=== PATIENT | female | born 2000 | race Two or more races ===

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

== ENCOUNTER → 2019-01-31 | Outpatient (REF) | payer OTHER, MEDICAID ==
[~2019-01-31] MED LIST: FLAG500T PO; IRON27TA2 PO; PREN27TA3 PO; VENTAER INH; ZOFR4TAB16 PO
== END ==
LOC: M SFHCLERA 10:17 → MERGE 10:17
PROVIDERS: ATTEND Nurse Practitioner Family
DX: J02.9 Acute pharyngitis, unspecified (principal)

== ENCOUNTER → 2019-05-04 | Outpatient (CLI) | payer OTHER ==
--- NOTE | 2019-05-04 19:26 | REP ---
HISTORY: anatomy. Multiple ultrasonographic images of the gravid uterus show a single living intrauterine gestation in the fareed breech presentation. Doppler interrogation of the heart shows a heart rate of 155 beats per minute. The placenta is anterior and not low lying. The subjective amniotic fluid volume is within normal limits. The cervix measures 3.6 cm in length and is closed. Evaluation of the maternal adnexal spaces showed no abnormalities. BPD 5.9 cm = 24 weeks 0 days HC 21.7 cm = 23 weeks 5 days AC 19.2 cm = 24 weeks 1 day FL 4.2 cm = 23 weeks 4 days The estimated weight is 637 grams, which is at the 76th percentile for a 22 week 6 day gestational age. The anatomical structures visualized as unremarkable are as follows: Thalami, cavum septum pellucidum, cerebellum, cisterna magna, cerebral ventricles, spine, cord insertion, three vessel umbilical cord, stomach, upper lip, four chamber heart, right and left ventricular outflow tracts, and upper and lower extremities. The kidneys and urinary bladder were suboptimally visualized. IMPRESSION: Single living intrauterine gestation as described above with an estimated gestational age of 24 weeks 1 day via composite criteria and an estimated date of delivery of 08/23/2019 by today's exam. No anomalies were detected, however, I recommend a followup examination to better visualize the kidneys and the urinary bladder. Electronically Signed by Lisandro López DO 05/05/2019 04:15 P
== END ==
LOC: M RAD 15:08
PROVIDERS: ATTEND Obstetrics & Gynecology
DX: Z34.90 Encounter for supervision of normal pregnancy, unspecified, unspecified trimester (principal); Z36.89 Encounter for other specified antenatal screening; Z3A.24 24 weeks gestation of pregnancy

== ENCOUNTER → 2019-05-31 | Outpatient (CLI) | payer OTHER ==
[2019-05-31 19:54] LABS: HEMATOCRIT 32.7 % (36.0-47.0); HEMOGLOBIN 10.5 g/dl (12.0-15.5); MEAN CORPUSCULAR HEMOGLOBIN 30.9 pg (27.0-33.0); MEAN CORPUSCULAR HGB CONC 32.1 g/dl (32.0-36.5); MEAN CORPUSCULAR VOLUME 96.2 fl (80.0-96.0); PLATELET COUNT, AUTOMATED 236 10^3/uL (150-450); WHITE BLOOD COUNT 8.7 10^3/uL (4.0-10.0)
== END ==
LOC: M PLALAB 12:55
PROVIDERS: ATTEND Obstetrics & Gynecology
DX: Z34.90 Encounter for supervision of normal pregnancy, unspecified, unspecified trimester (principal); Z36.89 Encounter for other specified antenatal screening

== ENCOUNTER → 2019-06-08 | Outpatient (REF) | payer OTHER, MEDICAID ==
[2019-06-09 10:17] LABS: APPEARANCE, URINE HAZY (CLEAR); BACTERIA, URINE AUTO NEGATIVE (NEGATIVE); BILIRUBIN, URINE AUTO NEGATIVE (NEGATIVE); BLOOD, URINE BLOOD NEGATIVE (NEGATIVE); COLOR, URINE YELLOW (YELLOW); GLUCOSE, URINE (UA) AUTO NEGATIVE (NEGATIVE); KETONE, URINE AUTO NEGATIVE (NEGATIVE); LEUKOCYTE ESTERASE, URINE AUTO NEGATIVE (NEGATIVE); MUCUS, URINE SMALL (NEGATIVE); NITRITE, URINE AUTO NEGATIVE (NEGATIVE); PROTEIN, URINE AUTO NEGATIVE (NEGATIVE); RBC, URINE AUTO 1 /HPF (0-3); SPECIFIC GRAVITY URINE AUTO 1.027 (1.002-1.035); SQUAMOUS EPITHELIAL CELL UR AU 1 /HPF (0-6); UROBILINOGEN, URINE AUTO 0.2 mg/dL (0.0-2.0); WBC, URINE AUTO 1 /HPF (0-3)
== END ==
LOC: M SFHCWAGY 09:49
PROVIDERS: ATTEND Obstetrics & Gynecology
DX: R39.89 Other symptoms and signs involving the genitourinary system (principal)

== ENCOUNTER 2019-07-18 21:26 | Outpatient (CLI) | payer MEDICAID, OTHER ==
[~2019-07-18] VITALS: Ht 157.5 cm; Wt 62.0 kg
[2019-07-18 21:37] VITALS: BP 113/64
--- NOTE | 2019-07-18 21:58 | IPNPDOC ---
Text Note Date of Service The patient was seen on 07/18/19. NOTE Subjective: Patient is a 19-year-old female who is a at 33.4 weeks gestation with an EDWIGE of 09/01/2019. Her has been complicated by a history of asthma, depression and anxiety. She is taking fluoxitine daily for depression and anxiety. She presents to L&D with complaints of decreased movement. She reports she hasn't felt her baby move from noon until 6 and after she ate and counted she only got 5 movements in 1.5 hours and fell asleep over the next half hour. She reports occasional cramping. She denies any leaking of fluid or vaginal bleeding. She states she has a history of migraines and has been dealing with a migraine/headache that hasnt improved with Tylenol. She reports Tylenol usually helps take care of her migraines. She was sent a script for Esgic to the pharmacy today prior to arrival to L&D. Since being in the department patient reports she has felt multiple movements. She counted at least 5 prior to ultrasound and 3 while doing ultrasound. Objective: VS: see below. FHR: 140, moderate variability, positive accelerations, no decelerations. Contractions: occasional. Patient denies feeling pain or tightening while arun. A+O x3. Respiratory: regular rate and rhythm. Abdomen: gravid, non tender to palpation and soft to touch. Bedside ultrasound done showing +FM, + breathing, and LINDA of 10.6 cm. Modified BPP is 10/10. Assessment: IUP at 33 weeks gestation, migraine, decreased movement, Category I FHR tracing, Plan: Patient to be discharged to home. Extensive education done on kick count, labor signs, and danger signs to report. She is to follow-up with her routine care, which is scheduled for 07/25/19. She is to call the office with any changes. VS,Cecilio, I+O VS, Cecilio, I+O Vital Signs Date Time Temp Pulse Resp B/P (MAP) Pulse Ox O2 Delivery O2 Flow Rate FiO2 07/18/19 21:37 98.1 86 18 113/64 (80) NADIA LUZ CNM Jul 18, 2019 21:58
[2019-07-18] MEDS ORDERED: FIORICET TAB PO ONE (22:00)
== END 2019-07-18 22:30 | disposition home or self-care (01) ==
LOC: M LDO 21:26
PROVIDERS: ATTEND Advanced Practice Midwife
DX: O36.8130 Decreased fetal movements, third trimester, not applicable or unspecified (principal); Z3A.33 33 weeks gestation of pregnancy; O99.513 Diseases of the respiratory system complicating pregnancy, third trimester; O99.343 Other mental disorders complicating pregnancy, third trimester

== ENCOUNTER 2019-08-01 00:10 | Outpatient (CLI) | payer MEDICAID, OTHER ==
[~2019-08-01] VITALS: Ht 157.5 cm; Wt 62.2 kg
[2019-08-01 00:29] VITALS: BP 128/78
[2019-08-01] MEDS ORDERED: ACETAMINOPHEN 500 MG TAB PO ONE (04:15)
[2019-08-01] MEDS ORDERED: MOM 30ML SUSPENSION UDC PO ONE (04:15)
[2019-08-01 04:31] VITALS: BP 119/76
--- NOTE | 2019-08-01 08:50 | IPNPDOC ---
Obstetrical Progress Note Date of Service Aug 01, 2019 Objective Vital Signs Date Time Temp Pulse Resp B/P (MAP) Pulse Ox O2 Delivery O2 Flow Rate FiO2 08/01/19 04:31 98.1 96 119/76 (90) Sterile Vaginal Examination Dilation: 2cm Effacement (%): 70% Station: -2 Cervical Consistency: Soft Cervical Position: Posterior Postion/Presentation: Cephalic presentation SARI CLIFTON MD. Aug 01, 2019 08:50
== END 2019-08-01 06:35 | disposition home or self-care (01) ==
LOC: M LDO 00:10
PROVIDERS: ATTEND Obstetrics & Gynecology
DX: O26.893 Other specified pregnancy related conditions, third trimester (principal); K59.00 Constipation, unspecified; Z3A.36 36 weeks gestation of pregnancy

== ENCOUNTER → 2019-08-05 | Outpatient (REF) | payer MEDICAID, OTHER ==
[~2019-08-05] MED LIST changes: +TUMS500C PO
== END ==
LOC: M SFHCWAGY 17:02
PROVIDERS: ATTEND Obstetrics & Gynecology
DX: Z3A.36 36 weeks gestation of pregnancy (principal)

== ENCOUNTER 2019-08-08 13:36 | Outpatient (CLI) | payer MEDICAID ==
[~2019-08-08] VITALS: Ht 157.5 cm; Wt 65.5 kg
[~2019-08-08 13:36] MED LIST changes: -TUMS500C PO
[2019-08-08 13:53] VITALS: BP 117/72
[2019-08-08] MEDS ORDERED: TUMS500C PO (13:59)
--- NOTE | 2019-08-08 14:43 | IPNPDOC ---
Text Note Date of Service The patient was seen on 08/08/19. NOTE Subjective: Patient is a 19-year-old female who is a at 36.4 weeks gestation with an EDWIGE of 09/01/19 based on her LMP and consistent with her first trimester ultrasound. She initiated care in her first trimester with [facility]. Her has been uncomplicated. She presented to L&D with complaints of being woke up with contractions this morning. She reports contractions that were regular every 6-10 minutes and painful for 2 hours and then reports they decreased in intensity but she was concerned that she wouldn't make it in time if she was in labor to get an epidural. She reports cramping and contractions now that aren't as painful as they were this morning. She denies vaginal bleeding or leaking of fluid. She reports active movement. Past pregnancies: 11/2015: 12 week SAB; 07/2017: 8 week SAB Medical history: asthma, anxiety and depression Surgical history: D&C Family history: HTN Social history: . Nonsmoker. Denies drug or alcohol use. Objective: VS: See below. FHR 130, moderate variability, positive accelerations, no decelerations. Contractions: every 2-6 minutes. SVE: 3-4/90/-1, anterior, soft, no show. No change from exam done in the office on 08/05/19. No change after 4-5 hours of being monitored. Assessment: IUP at 36.4 weeks gestation, labor check, Category I FHR tracing. Plan: Betamethasone given in L&D given advanced cervical dilation and contraction pattern. She was instructed to return tomorrow at the same time for her second dose. Education done on reasoning behind injection. Patient verbalized understanding. Extensive education done on labor signs and term labor signs. Reviewed access to care, kick count, labor signs and danger signs to report. VS,Fishbone, I+O VS, Fishbone, I+O Vital Signs Date Time Temp Pulse Resp B/P (MAP) Pulse Ox O2 Delivery O2 Flow Rate FiO2 08/08/19 13:53 98.3 80 18 117/72 (87) 98 Room Air NADIA LUZ CNM Aug 08, 2019 14:43
[2019-08-08] MEDS ORDERED: BETAMETHASONE SOLUSPAN 6MG/ML INJ 5ML (J0702) As Ordered ONE (18:23)
[2019-08-08] MEDS ORDERED: BETAMETHASONE SOLUSPAN 6MG/ML INJ 5ML (J0702) IM SCH (19:00)
== END 2019-08-08 18:32 | disposition home or self-care (01) ==
LOC: M LDO 13:36
PROVIDERS: ATTEND Advanced Practice Midwife
DX: O47.1 False labor at or after 37 completed weeks of gestation (principal); Z3A.36 36 weeks gestation of pregnancy; O99.343 Other mental disorders complicating pregnancy, third trimester; F32.9 Major depressive disorder, single episode, unspecified; F41.9 Anxiety disorder, unspecified; O99.513 Diseases of the respiratory system complicating pregnancy, third trimester; J45.909 Unspecified asthma, uncomplicated; Z79.899 Other long term (current) drug therapy
CPT/HCPCS: 59025; 96372; J0702

== ENCOUNTER 2019-08-09 17:52 | Outpatient (CLI) | payer MEDICAID ==
[~2019-08-09] VITALS: Ht 157.5 cm; Wt 64.4 kg
[~2019-08-09 17:52] MED LIST changes: +TUMS500C PO
[2019-08-09 18:11] VITALS: BP 117/70
[2019-08-09] MEDS ORDERED: BETAMETHASONE SOLUSPAN 6MG/ML INJ 5ML (J0702) IM ONE (19:00)
== END 2019-08-09 19:05 | disposition home or self-care (01) ==
LOC: M LDO 17:52
PROVIDERS: ATTEND Obstetrics & Gynecology
DX: O47.1 False labor at or after 37 completed weeks of gestation (principal); Z3A.36 36 weeks gestation of pregnancy; O99.343 Other mental disorders complicating pregnancy, third trimester; F32.9 Major depressive disorder, single episode, unspecified; O99.513 Diseases of the respiratory system complicating pregnancy, third trimester; J45.909 Unspecified asthma, uncomplicated; Z79.899 Other long term (current) drug therapy
CPT/HCPCS: 59025; 96372; J0702

== ENCOUNTER 2019-08-23 00:48 | Outpatient (CLI) | payer MEDICAID, OTHER ==
[~2019-08-23] VITALS: Ht 157.5 cm; Wt 66.8 kg
[2019-08-23 01:11] VITALS: BP 125/80
[2019-08-23] MEDS ORDERED: PROMETHAZINE INJ 25 MG/ML VIAL (J2550) IV ONE (03:45)
[2019-08-23] MEDS ORDERED: MORPHINE 10 MG/ML 1ML VIAL (J2270) IV ONE (03:45)
[2019-08-23] MEDS ORDERED: MORPHINE 10 MG/ML 1ML VIAL (J2270) SC ONE (03:45)
[2019-08-23 04:20] VITALS: BP 121/75
== END 2019-08-23 08:30 | disposition home or self-care (01) ==
LOC: M LDO 00:48
PROVIDERS: ATTEND Obstetrics & Gynecology
DX: O47.1 False labor at or after 37 completed weeks of gestation (principal); Z3A.38 38 weeks gestation of pregnancy
CPT/HCPCS: 59025; 96372; 96374; 96375; G0378; G0463; J2270

== ENCOUNTER 2019-08-28 12:00 | Inpatient (IN) | payer OTHER ==
[2019-08-28] VITALS (35 sets, daily range): BP systolic 98–166; BP diastolic 49–102
[~2019-08-28] VITALS: Ht 157.5 cm; Wt 68.0 kg
[2019-08-28] MEDS ORDERED: OXYTOCIN DRIP 30 UNITS in IV 1 EA IV SCH (13:15)
[2019-08-28] MEDS ORDERED: ALBUTEROL 90 MCG/ACT 8GM HFA INHALER INH PRN (13:30)
[2019-08-28 13:35] LABS: HEMATOCRIT 33.3 % (36.0-47.0); HEMOGLOBIN 10.7 g/dl (12.0-15.5); MEAN CORPUSCULAR HEMOGLOBIN 29.7 pg (27.0-33.0); MEAN CORPUSCULAR HGB CONC 32.1 g/dl (32.0-36.5); MEAN CORPUSCULAR VOLUME 92.5 fl (80.0-96.0); PLATELET COUNT, AUTOMATED 219 10^3/uL (150-450); WHITE BLOOD COUNT 8.1 10^3/uL (4.0-10.0)
[2019-08-28] MEDS: LR 1,000 ML IV SCH (14:43)
--- NOTE | 2019-08-28 14:48 | HPE ---
DATE OF ADMISSION: 08/28/2019 19-year-old 3, para 0-0-2-0 female at 39-3/7 weeks gestation by last menstrual period (LMP) consistent with 10 week ultrasound, estimated date of confinement (EDC) 09/01/2019 presents for labor induction. The has occasional contractions. She denies vaginal bleeding. There is good movement. MEDICAL HISTORY: 1. Asthma. 2. Depression. 3. Anxiety. SURGICAL HISTORY: 1. Dilatation and curettage. ALLERGIES: No known drug allergies. SOCIAL HISTORY: The patient is . She lives at [place]. Her is involved. She denies cigarettes, alcohol or drug use. FAMILY HISTORY: Noncontributory. PHYSICAL EXAMINATION: Blood pressure 124/74, pulse 84. In no apparent distress. Head and neck exam normal. Lungs clear. Heart regular rate and rhythm. Abdomen nontender, gravid. heart tones category 1. Contractions irregular. Sterile vaginal exam 3-4 cm, 100%, -2. Extremities nontender. LABS: Group B Streptococcus (GBS) negative. Normal glucose challenge test. Blood type O positive. ASSESSMENT: 19-year-old 3, para 0-0-2-0 female at 39-3/7 weeks gestation who presents for labor induction. PLAN: The patient was admitted on 08/28/2019. Plan induction via Pitocin. The risks of induction were discussed.
[2019-08-28] MEDS ORDERED: CALCIUM CARBONATE 500 MG CHEW U/D PO PRN (18:00)
[2019-08-28] MEDS ORDERED: FENTANYL 2MCG/ML ROPIVACAINE 0.2% IN 0.9% NACL 100ML IVBAG As Ordered ONE (20:06)
[2019-08-28] MEDS ORDERED: ONDANSETRON 4MG/2ML VIAL (J2405) IV PRN (22:15)
[2019-08-28] MEDS ORDERED: ePHEDrine SULFATE 25 MG/5 ML(5MG/ML) SYRINGE IV PRN (22:15)
[2019-08-28] MEDS ORDERED: diphenhydrAMINE 50MG/ML VIAL (J1200) IV PRN (22:15)
[2019-08-28] MEDS ORDERED: NALOXONE INJ 0.4 MG/1 ML VIAL (J2310) IV PRN (22:15)
[2019-08-28] MEDS ORDERED: REFRIGERATOR IV KEYS XX PRN (22:15)
[2019-08-28] MEDS ORDERED: LACTATED RINGER'S 1000 ML IV PRN (22:15)
[2019-08-28] MEDS ORDERED: EPIDURAL COMMENT XX SCH (22:15)
[2019-08-28] MEDS ORDERED: EPIDURAL/PCA KEYS XX PRN (22:15)
[2019-08-28] MEDS ORDERED: FENTANYL/ROPIVACAINE/NACL BAG 100 ML EPIDURAL SCH (22:15)
[2019-08-29] VITALS (10 sets, daily range): BP systolic 112–157; BP diastolic 66–108
[2019-08-29] MEDS: LR 1,000 ML IV SCH (00:08)
[2019-08-29] MEDS ORDERED: DIBUCAINE 1% OINTMENT 30GM TOP PRN (00:30)
[2019-08-29] MEDS ORDERED: ONDANSETRON 4MG/2ML VIAL (J2405) IV PRN (00:30)
[2019-08-29] MEDS ORDERED: RHOGAM 300 MCG (1500 IU) INJ (J2790) IM SCH (00:30)
[2019-08-29] MEDS ORDERED: IBUPROFEN 600 MG TAB PO PRN (00:30)
[2019-08-29] MEDS ORDERED: OXYTOCIN DRIP 30 UNITS in IV 1 EA IV ONE (00:30)
[2019-08-29] MEDS ORDERED: METHYLERGONOVINE MALEATE 0.2 MG TAB PO PRN (00:30)
[2019-08-29] MEDS ORDERED: DOCUSATE SODIUM 100 MG CAP PO PRN (00:30)
[2019-08-29] MEDS ORDERED: ACETAMINOPHEN 500 MG TAB PO PRN (00:30)
[2019-08-29] MEDS ORDERED: MEASLES,MUMPS,RUBELLA VACCINE INJ (MMR-II) (90707) SC SCH (00:30)
[2019-08-29] MEDS: IBUPROFEN 800 MG TAB PO PRN (00:36)
--- NOTE | 2019-08-29 07:34 | DN ---
DATE OF DELIVERY: 08/28/2019 PREDELIVERY DIAGNOSIS: 39 plus weeks, labor induction. POSTDELIVERY DIAGNOSIS: Delivered. PROCEDURE: Spontaneous vaginal delivery. SURGEON: Dr. Cordell Bee ANESTHESIA: Epidural. ESTIMATED BLOOD LOSS: 300 mL. FINDINGS: 7 pound 10 ounce female . Apgars 8 and 9. DELIVERY SUMMARY: After a 30 minute second stage of labor, the patient spontaneously delivered a 7 pound 10 ounce female with Apgars of 8 and 9 under epidural anesthesia. There was no nuchal cord. The shoulders delivered with ease. The infant was handed to the mother. The cord was doubly clamped and cut. The placenta delivered spontaneously and appeared to be intact. The patient received IV Pitocin immediately after delivery of the placenta. There were no vaginal lacerations present. Sponge counts were correct.
[2019-08-29] MEDS: ACETAMINOPHEN TAB 650MG DOSE (2X325MG) PO PRN ×2 (08:57→19:40)
[2019-08-29] MEDS: PRENATAL VITAMINS CHEWABLE TABLET PO SCH (08:57)
[2019-08-30] MEDS: IBUPROFEN 800 MG TAB PO PRN (05:03)
[2019-08-30 06:34] VITALS: BP 136/81
[2019-08-30] MEDS ORDERED: IBUP80TA PO (07:29)
[2019-08-30] MEDS ORDERED: ACET-683 PO (07:29)
[2019-08-30] MEDS: PRENATAL VITAMINS CHEWABLE TABLET PO SCH (10:57)
== END 2019-08-30 13:40 | disposition home or self-care (01) | DRG 807 ==
LOC: M LDI 12:00 → M OBS 08-29 02:40
PROVIDERS: ADMIT Specialist; ATTEND Specialist
PROC: 10E0XZZ Delivery of Products of Conception, External Approach (ICD-10-PCS; principal; 2019-08-28)
PROC: 3E033VJ Introduction of Other Hormone into Peripheral Vein, Percutaneous Approach (ICD-10-PCS; 2019-08-28)
DX: O80 Encounter for full-term uncomplicated delivery (principal); Z37.0 Single live birth; Z3A.39 39 weeks gestation of pregnancy

== ENCOUNTER → 2019-11-18 | Outpatient (REF) | payer OTHER ==
[~2019-11-18] MED LIST changes: +ACET-683 PO; +IBUP80TA PO
[2019-11-18 19:44] LABS: CHLAMYDIA DNA AMPLIFICATION NEGATIVE (NEGATIVE); GC DNA AMPLIFICATION NEGATIVE (NEGATIVE)
== END ==
LOC: M SFHCLERA 15:55
PROVIDERS: ATTEND Physician Assistant
DX: R10.9 Unspecified abdominal pain (principal); G43.909 Migraine, unspecified, not intractable, without status migrainosus

== ENCOUNTER 2019-11-25 01:34 | Emergency (ER) | payer OTHER ==
[~2019-11-25] VITALS: Ht 157.5 cm; Wt 62.7 kg
[2019-11-25 01:35] VITALS: BP 119/59
== END 2019-11-25 01:55 | disposition left against medical advice (07) ==
LOC: M ED 01:34
DX: Z53.21 Procedure and treatment not carried out due to patient leaving prior to being seen by health care provider (principal)